=== PATIENT | female | born 1980 | race Caucasian/White ===

== ENCOUNTER 2019-01-15 01:36 | Emergency (ER) | payer OTHER ==
[~2019-01-15] VITALS: Ht 165.1 cm; Wt 97.5 kg
[2019-01-15 01:42] VITALS: Ht 165.1 cm; Wt 97.5 kg
[2019-01-15 02:29] LABS: microscopic required? NO
[2019-01-15 02:57] LABS: CARBON DIOXIDE 28.8 mmol/L (21-32); CHLORIDE SERUM 103 mmol/L (98-107); CREATININE SERUM 0.8 mg/dL (0.6-1.0); GFR1 > 60 mL/min; GLUCOSE SERUM 102 mg/dL (74-106); POTASSIUM SERUM 3.9 mmol/L (3.5-5.1); SODIUM SERUM 139 mmol/L (136-145)
[2019-01-15 03:00] LABS: UA SPECIFIC GRAVITY 1.025 (1.005-1.035); urine erythrocyte NEGATIVE (NEGATIVE)
[2019-01-15 03:02] LABS: ALBUMIN 3.8 g/dL (3.4-5.0); ALKALINE PHOSPHATASE 75 U/L (46-116); ALT/SGPT 22 U/L (14-59); AST/SGOT 10 U/L (15-37); BASOPHIL % 0.3 % (0-2); BILIRUBIN TOTAL 0.65 mg/dL (0.20-1.00); PLATELET COUNT 358 x10^3mcL (130-400); RED CELL DISTRIBUTION WIDTH 14.2 % (11.5-14.5); TOTAL PROTEIN, SERUM 7.8 g/dL (6.4-8.2)
[2019-01-15 06:30] VITALS: BP 111/66
== END 2019-01-15 06:30 | disposition home or self-care (01) ==
LOC: ED 01:36
PROVIDERS: Emergency Medicine
DX: R10.13 Epigastric pain (principal); R10.33 Periumbilical pain; R10.10 Upper abdominal pain, unspecified; R51 Headache; R11.10 Vomiting, unspecified
CPT/HCPCS: J1100; J2270; J2765; J3490; J7030